=== PATIENT | male | born 1975 | race Caucasian/White ===

== ENCOUNTER 2017-04-13 13:09 | Emergency (ER) | payer OTHER ==
[2017-04-13] MEDS: DIPH,PERTUSS(ACELL),TET VAC/PF 0.5 ML DISP.SYRIN IM ONE (14:10)
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
[2017-04-13 14:39] VITALS: BP 132/81
[2017-04-13] MEDS ORDERED: DIPH,PERTUSS(ACELL),TET VAC/PF 0.5 ML DISP.SYRIN IM ONE (14:42)
--- NOTE | 2017-04-13 18:07 | Diagnostic Imaging Report ---
RADAMES CASTLE [facility] [id number] [facility] [address] [place], [place]. [address] Report Submission Date: Apr 13, 2017 2:01:01 PM CDT Patient Study Name: ANASTASIIA BIGGS Date: Apr 13, 2017 1:29:36 PM CDT Modality Type: CT\SR Gender: M Description: CT MAXILLOFACIAL W/O D : 77 Institution: [facility] Physician: RADAMES CASTLE Examination: CT maxillofacial History: Trauma Comparison exams: None provided Technique: Axial imaging with sagittal and coronal reconstruction Findings: Bilateral nasal bone fracture. Left basilar fracture appears to be comminuted. Medial and inferior orbital christianson are intact. Anterior and posterior maxillary christianson are also intact. Zygomatic arches without fracture. No air fluid levels within the sinuses. Mild mucous thickening vs blood within the ethmoid sinuses. Remaining visualized osseous structures and soft tissue structures are without irregularity. Left mandibular condyle appears to be slightly hypoplastic. Impression: Bilateral nasal bone fractures: Left appears to be comminuted. No orbital or maxillary bone fractures Electronically signed on Apr 13, 2017 2:01:01 PM CDT by: Jean SANCHEZ
== END 2017-04-13 14:37 | disposition home or self-care (01) ==
LOC: ED 13:09
DX: S02.2XXB Fracture of nasal bones, initial encounter for open fracture (principal); S01.81XA Laceration without foreign body of other part of head, initial encounter; X58.XXXA Exposure to other specified factors, initial encounter; Y93.9 Activity, unspecified; Y99.9 Unspecified external cause status
CPT/HCPCS: 70486; 90471; 90715; 99283

== ENCOUNTER 2017-04-17 13:37 | Outpatient (CLI) | payer OTHER ==
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
== END 2017-04-17 13:40 ==
LOC: ENT 13:37
PROVIDERS: ATTEND Otolaryngology
DX: J34.2 Deviated nasal septum (principal); S02.109A Fracture of base of skull, unspecified side, initial encounter for closed fracture; S02.2XXA Fracture of nasal bones, initial encounter for closed fracture; X58.XXXA Exposure to other specified factors, initial encounter; Y93.9 Activity, unspecified; Y99.9 Unspecified external cause status
CPT/HCPCS: 99203

== ENCOUNTER 2017-04-24 11:58 | Outpatient (CLI) | payer OTHER ==
--- NOTE | 2017-04-25 11:04 | OP Clinic Progress Note ---
REASON FOR VISIT: This 41-year-old male is seen 2 days post nasal fracture reduction. The patient states he does not have a lot of pain. His nose is still stuffy. He does have silastic stents in both sides of his nose to help keep the nose formed. He has no complaints about the overall appearance of his nose. He feels in general it is much improved. PLAN: We discussed options and choices whether to wait to take them out next week or this coming Saturday. I think overall, it would probably less risk taking them out this Saturday as opposed to next week. Patient will follow up in 2 days for stent removal. cc: Dr. Josemanuel SANCHEZ
== END 2017-04-24 12:00 ==
LOC: ENT 11:58
PROVIDERS: ATTEND Otolaryngology
DX: S02.2XXD Fracture of nasal bones, subsequent encounter for fracture with routine healing (principal); X58.XXXA Exposure to other specified factors, initial encounter; Y93.9 Activity, unspecified; Y99.9 Unspecified external cause status
CPT/HCPCS: 99213